=== PATIENT | male | born 1975 ===

== ENCOUNTER 2021-08-08 08:20 | Outpatient (CLI) | payer SELFPAY ==
[2021-08-08] VITALS (10 sets, daily range): BP systolic 126–154; BP diastolic 56–91; PULSE 64–75; TEMP 98.6
[2021-08-08] MEDS ORDERED: COLCRYS0.6 MG PO (09:34)
[2021-08-08] MEDS ORDERED: NEURONTIN300 MG/CAP PO (09:35)
[2021-08-08] MEDS ORDERED: FLOMAX 0.40.4 MG/CAP PO (09:35)
[2021-08-08] MEDS ORDERED: SODIUM BICARBO650 MG PO (09:36)
[2021-08-08] MEDS ORDERED: ULTRAM 50MG TAB50 MG PO (09:37)
[2021-08-08] MEDS ORDERED: APRESOLINE 10MG10 MG PO (09:37)
[2021-08-08] MEDS ORDERED: LIPITOR20 MG PO (09:38)
[2021-08-08] MEDS ORDERED: PRINIVIL20 MG PO (09:38)
[2021-08-08] MEDS ORDERED: MASON NATURAL2000 IU PO (09:39)
[2021-08-08] MEDS ORDERED: AURYXIA1 GM PO (09:40)
[2021-08-08] MEDS ORDERED: FERROUSAL325 MG PO (09:40)
[2021-08-08] MEDS ORDERED: PHOSLO667 MG PO (09:42)
--- NOTE | 2021-08-08 10:58 | NUR ---
SEE MERGE FOR ALL MEDICATION ADMINISTRATION TIMES AND INTRA/POST SEDATION ASSESSMENT.
--- NOTE | 2021-08-08 11:45 | NUR ---
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 PT HAS BEEN WELL IN FLOOR FINISHER HELPER, HOWEVER DEVELOPS NAUSEA UPON ARRIVAL TO [facility]. PT IS DRY HEAVING. VERBAL ORDER FROM DR. LONGORIA RECEIVED FOR ZOFRAM 4MG IV. THIS IS ADMINISTERED WITH GOOD RESULT. PT AND SON UPDATED ON POC. CALL LIGHT IN REACH.
--- NOTE | 2021-08-08 13:40 | NUR ---
INT discontinued intact. Pt has no questions on discharge instructions. Transferred to private car by tato
== END 2021-08-08 13:45 | disposition home or self-care (01) ==
LOC: COL.CAR 08:20
DX: Z45.2 Encounter for adjustment and management of vascular access device (principal); N18.6 End stage renal disease; I12.0 Hypertensive chronic kidney disease with stage 5 chronic kidney disease or end stage renal disease; Z99.2 Dependence on renal dialysis; Z79.899 Other long term (current) drug therapy
CPT/HCPCS: J1644; J2250; J2405; J3010

== ENCOUNTER → 2021-08-24 | Outpatient (CLI) | payer SELFPAY ==
[~2021-08-24] MED LIST: APRESOLINE 10MG10 MG PO; AURYXIA1 GM PO; COLCRYS0.6 MG PO; FERROUSAL325 MG PO; FLOMAX 0.40.4 MG/CAP PO; LIPITOR20 MG PO; MASON NATURAL2000 IU PO; NEURONTIN300 MG/CAP PO; PHOSLO667 MG PO; PRINIVIL20 MG PO; SODIUM BICARBO650 MG PO; ULTRAM 50MG TAB50 MG PO
== END ==
LOC: COL.VAS 13:15
DX: Z01.818 Encounter for other preprocedural examination (principal); T82.598A Other mechanical complication of other cardiac and vascular devices and implants, initial encounter

== ENCOUNTER 2021-10-19 08:46 | Day surgery (SDC) | payer SELFPAY ==
[~2021-10-19] VITALS: Ht 160 cm; Wt 76.5 kg
[2021-10-19] MEDS ORDERED: LASIX 40MG TABL40 MG PO (10:33)
[2021-10-19] MEDS ORDERED: PRILOSEC 20MG20 MG PO (10:34)
[2021-10-19] MEDS ORDERED: NORVASC 10MG10 MG PO (10:34)
[2021-10-19 10:35] VITALS: BP 138/74; PULSE 68; TEMP 98.6
[2021-10-19 10:35] LABS: CALCIUM 7.2 mg/dL (8.4-10.2); CREATININE, serum 15.46 mg/dL (0.72-1.25)
[2021-10-19 10:40] LABS: POTASSIUM 5.8 mmol/L (3.5-4.5)
[2021-10-19 12:20] VITALS: BP 119/58; PULSE 61
--- NOTE | 2021-10-19 12:20 | NUR ---
Patient returns to room 2 per cart from surgery accompanied by Edmar Suarez CRNA and Tez BELL. Patient is awake and alert. Son in room. IV fluids infusing. Accucheck 82. Temp 97.8 and room air sats 97%. Given ice chips. Siderails up x2 and call light in reach. AV fistula site left wrist with thrill noted. Wound edges well approximated.
[2021-10-19] MEDS ORDERED: NORCO 325 MG-51 TAB PO (12:21)
[2021-10-19 12:35] VITALS: BP 130/69; PULSE 56
--- NOTE | 2021-10-19 12:35 | NUR ---
Drinking apple juice. Denies pain. Room air sats 99%.
[2021-10-19 12:50] VITALS: BP 143/75; PULSE 58
--- NOTE | 2021-10-19 12:50 | NUR ---
Room air sats 96%. Resting and denies pain.
--- NOTE | 2021-10-19 13:00 | NUR ---
IV discontinued and site is free of redness or swelling. Patient dresses self.
--- NOTE | 2021-10-19 13:20 | NUR ---
Instructed patient and son on how to check for thrill. Provided follow up appointment date and time. Both son and patient verbalize understanding of instructions.
--- NOTE | 2021-10-19 13:27 | NUR ---
Patient dismissed to home driven by son and taken to the front door per wheelchair and assisted into vehicle with instructions in hand.
== END 2021-10-19 13:27 | disposition home or self-care (01) ==
LOC: SDCO 08:46
PROVIDERS: Surgery
DX: D50.9 Iron deficiency anemia, unspecified (principal); K92.1 Melena; I12.0 Hypertensive chronic kidney disease with stage 5 chronic kidney disease or end stage renal disease; N18.6 End stage renal disease; E11.40 Type 2 diabetes mellitus with diabetic neuropathy, unspecified; E11.22 Type 2 diabetes mellitus with diabetic chronic kidney disease; K31.89 Other diseases of stomach and duodenum; E78.5 Hyperlipidemia, unspecified; F32.A Depression, unspecified; Z99.2 Dependence on renal dialysis; Z79.899 Other long term (current) drug therapy; Z79.84 Long term (current) use of oral hypoglycemic drugs; Z83.3 Family history of diabetes mellitus
CPT/HCPCS: J0690; J1644; J2704; J3010; J7030

== ENCOUNTER 2022-04-25 09:17 | Day surgery (SDC) | payer SELFPAY ==
[~2022-04-25] VITALS: Ht 160 cm; Wt 79.1 kg
[~2022-04-25 09:17] MED LIST changes: +LASIX 40MG TABL40 MG PO; +NORCO 325 MG-51 TAB PO; +NORVASC 10MG10 MG PO; +PRILOSEC 20MG20 MG PO
[2022-04-25 10:29] VITALS: BP 145/73; PULSE 67; TEMP 97.2
[2022-04-25] MEDS ORDERED: LIPITOR20 MG PO (11:15)
[2022-04-25] MEDS ORDERED: LASIX 80MG TABL80 MG PO (11:16)
[2022-04-25 11:25] LABS: CREATININE, serum 14.03 mg/dL (0.72-1.25); POTASSIUM 5.4 mmol/L (3.5-4.5)
[2022-04-25 14:05] VITALS: BP 135/77; PULSE 66
--- NOTE | 2022-04-25 14:05 | NUR ---
RETURNS TO ROOM 5 PER CART FROM SURGERY ACCOMPANIED BY ELISSA KEMP AND BONITA RN. PATIENT IS AWAKE AND ALERT. IV FLUIDS INFUSING AT TKO. THRILL NOTED LEFT AV FISTULA CREATION. EXOFIN SKIN GLUE COVERING THE SITE. SIDERAILS UP X2 AND CALL LIGHT IN REACH.
[2022-04-25 14:20] VITALS: BP 137/76; PULSE 67
--- NOTE | 2022-04-25 14:20 | NUR ---
EATING WATER AND PUDDING. SON IN THE ROOM.
[2022-04-25] MEDS ORDERED: NORCO 325 MG-51 TAB PO (14:24)
[2022-04-25 14:35] VITALS: BP 133/76; PULSE 66
--- NOTE | 2022-04-25 14:35 | NUR ---
IV DISCONTINUED AND SITE IS FREE OF REDNESS.
--- NOTE | 2022-04-25 14:43 | NUR ---
DISCHARGE INSTRUCTIONS GIVEN VIA VOYCE AND PATIENT AND SON BOTH VERBALIZE UNDERSTANDING OF THESE. PROVIDED OFFICE NUMBER FOR QUESTIONS AND CONCERNS.
--- NOTE | 2022-04-25 15:13 | NUR ---
DISCHARGE INSTRUCTIONS SIGNED. PATIENT DRESSES SELF.
--- NOTE | 2022-04-25 15:21 | NUR ---
PATIENT DISCHARGED TO HOME DRIVEN BY SON AND TAKEN TO THE FRONT DOOR PER WHEELCHAIR AND ASSISTED INTO VEHICLE.
== END 2022-04-25 15:21 | disposition home or self-care (01) ==
LOC: SDCO 09:17
PROVIDERS: Surgery
DX: E11.22 Type 2 diabetes mellitus with diabetic chronic kidney disease (principal); I12.0 Hypertensive chronic kidney disease with stage 5 chronic kidney disease or end stage renal disease; N18.6 End stage renal disease; D63.1 Anemia in chronic kidney disease
CPT/HCPCS: J0690; J1644; J2704; J7030

== ENCOUNTER 2024-04-16 11:11 | Outpatient (CLI) | payer OTHER ==
[~2024-04-16] VITALS: Ht 162.6 cm; Wt 79.1 kg
[2024-04-16] VITALS (10 sets, daily range): BP systolic 127–154; BP diastolic 74–86; PULSE 59–63; TEMP 97.6
[~2024-04-16 11:11] MED LIST changes: +LASIX 80MG TABL80 MG PO; -MASON NATURAL2000 IU PO
[2024-04-16] MEDS ORDERED: ZYLOPRIM 100MG100 MG PO (11:59)
[2024-04-16] MEDS ORDERED: ASPIRIN 32325 MG/TAB PO (12:04)
[2024-04-16] MEDS ORDERED: MASON NATURAL2000 IU PO (12:14)
--- NOTE | 2024-04-16 13:18 | NUR ---
Interpretor used with ID number [id number].Questions invited and answered with and warehouse general laborer nurse in room.Report to Lis León.Patient to procedure.
--- NOTE | 2024-04-16 13:30 | NUR ---
See merge for all medication, assessment, intervention, and vital sign times.
[2024-04-16] MEDS ORDERED: Midazolam 2 MG/2 ML VIAL IV SCH (14:11)
[2024-04-16] MEDS ORDERED: fentaNYL 50 MCG/ML 2 ML VIAL IV SCH (14:12)
[2024-04-16] MEDS ORDERED: Heparin 1,000 UNITS/ML 10 ML Multi-Dose VIAL IV SCH (14:12)
--- NOTE | 2024-04-16 14:35 | NUR ---
Patient returned from catheter builder.Report from Lis León.
--- NOTE | 2024-04-16 14:40 | NUR ---
Pre procedure teaching conducted using machine room operator tablet acoustics teacher ID [id number]. Dr. Mazariegos also used this session to discuss risk/reward with the patient. No italian consent available per Fanny BELL and Alayna White RN. Consenst read to patient using with translation by acoustics teacher IDs [id number] and [id number], with patient's son participating as well. Service of the acoustics teacher table was spotty with multiple dropped calls. During the procedure machine room operator ID [id number] was utilized. Post procedure report given to Fanny BELL at approximately 1440. Call light within reach, first set of vitals reviewed, no fluids hanging, insertion site reviewed. Fanny BELL denies questions/concerns at this time.
--- NOTE | 2024-04-16 16:42 | NUR ---
Discharge instructions given to pt.pt verbalizes understanding.Bandaid to left f/a observed clean,dry,intack.Pt escorted out via wheelchair by ARABELLA Cannon.
== END 2024-04-16 16:54 ==
LOC: COL.CAR 11:11
DX: T82.898A Other specified complication of vascular prosthetic devices, implants and grafts, initial encounter (principal); I12.9 Hypertensive chronic kidney disease with stage 1 through stage 4 chronic kidney disease, or unspecified chronic kidney disease; N18.9 Chronic kidney disease, unspecified; Z99.2 Dependence on renal dialysis
CPT/HCPCS: C1725; C1769; C1894; J1644; J2250; J3010